=== PATIENT | male | born 1955 | race Asian ===

== ENCOUNTER → 2016-12-03 | Outpatient (CLI) | payer OTHER ==
[~2016-12-03] MED LIST: ACT15 PO; GENOVIA PO; GLIPIZIDE5 MG PO; HEP25PM IV; LIPI20 PO; METFORMIN HCL1000 MG PO; METOPROLOL TART25 M1 PO; MP PO; NIT0.4 SL; PROT40I IV; VASOTEC20 MG PO
--- NOTE | 2016-12-03 14:15 | NUR ---
LEXISCAN CARDIOLITE STRESS COMPLETED
== END | disposition home or self-care (01) ==
LOC: CA 09:00 → NM 13:30
DX: R06.02 Shortness of breath (principal)
CPT/HCPCS: A9500; J2785

== ENCOUNTER → 2017-03-11 | Outpatient (CLI) | payer OTHER ==
--- NOTE | 2017-03-11 13:31 | NUR ---
CARDIOLITE STRESS TEST COMPLETED
== END | disposition home or self-care (01) ==
LOC: CA 11:08
DX: R94.31 Abnormal electrocardiogram [ECG] [EKG] (principal); I10 Essential (primary) hypertension
CPT/HCPCS: A9500

== ENCOUNTER → 2017-05-27 | Outpatient (CLI) | payer OTHER ==
[2017-05-27 07:31] LABS: microscopic required? NO
[2017-05-27 07:57] LABS: ALKALINE PHOSPHATASE 102 U/L (46-116); ALT/SGPT 34 U/L (16-63); AST/SGOT 30 U/L (15-37); BILIRUBIN DIRECT 0.22 mg/dL (0.0-0.2); BILIRUBIN TOTAL 0.5 mg/dL (0.20-1.00); CALCIUM 9.5 mg/dL (8.5-10.1); CARBON DIOXIDE 30.4 mmol/L (21-32); CHLORIDE SERUM 103 mmol/L (98-107); CHOLESTEROL 124 mg/dL (<200); CHOLESTEROL/HDL RATIO 1.4; GFR1 > 60 mL/min; GLUCOSE SERUM 115 mg/dL (74-106); HDL CHOLESTEROL 87 mg/dL (40-60); POTASSIUM SERUM 5.1 mmol/L (3.5-5.1); SODIUM SERUM 140 mmol/L (136-145); TOTAL PROTEIN, SERUM 8.7 g/dL (6.4-8.2); TRIGLYCERIDES 59 mg/dL (<150)
[2017-05-27 08:23] LABS: urine erythrocyte NEGATIVE (NEGATIVE)
== END | disposition home or self-care (01) ==
LOC: LB 07:06
PROVIDERS: Internal Medicine
DX: E11.9 Type 2 diabetes mellitus without complications (principal)

== ENCOUNTER → 2017-09-12 | Outpatient (CLI) | payer OTHER | END | disposition home or self-care (01) | LOC: CA 11:27 | DX: I10 Essential (primary) hypertension (principal); E11.9 Type 2 diabetes mellitus without complications ==

== ENCOUNTER → 2017-11-12 | Outpatient (CLI) | payer OTHER | END | disposition home or self-care (01) | LOC: RD 11:17 | DX: M47.896 Other spondylosis, lumbar region (principal) ==

== ENCOUNTER → 2018-01-18 | Outpatient (CLI) | payer OTHER ==
[2018-01-18 07:52] LABS: BASOPHIL % 1.2 % (0-2); PLATELET COUNT 199 x10^3mcL (130-400)
[2018-01-18 07:57] LABS: RED CELL DISTRIBUTION WIDTH 16.7 % (11.5-14.5)
[2018-01-18 08:30] LABS: T3 TOTAL 0.88 ng/mL
[2018-01-18 08:32] LABS: ALKALINE PHOSPHATASE 106 U/L (46-116); ALT/SGPT 38 U/L (16-63); AST/SGOT 29 U/L (15-37); BILIRUBIN TOTAL 0.46 mg/dL (0.20-1.00); CALCIUM 9.8 mg/dL (8.5-10.1); CARBON DIOXIDE 28.8 mmol/L (21-32); CHLORIDE SERUM 103 mmol/L (98-107); GFR1 > 60 mL/min; GLUCOSE SERUM 146 mg/dL (74-106); POTASSIUM SERUM 4.8 mmol/L (3.5-5.1); SODIUM SERUM 141 mmol/L (136-145); TRIGLYCERIDES 68 mg/dL (<150)
[2018-01-18 08:33] LABS: CHOLESTEROL 121 mg/dL (<200); CHOLESTEROL/HDL RATIO 1.4; HDL CHOLESTEROL 88 mg/dL (40-60); TOTAL PROTEIN, SERUM 8.3 g/dL (6.4-8.2)
[2018-01-18 09:06] LABS: FREE THYROXINE INDEX 2.6 ug/dL (1.4-4.5); T4(THYROXINE) 7.3 ug/dL (4.7-13.3)
[2018-01-18 09:31] LABS: FREE T4 1.04 ng/dL (0.76-1.46)
== END | disposition home or self-care (01) ==
LOC: LB 07:26
DX: R94.31 Abnormal electrocardiogram [ECG] [EKG] (principal); E78.2 Mixed hyperlipidemia; I25.10 Atherosclerotic heart disease of native coronary artery without angina pectoris; E66.3 Overweight
CPT/HCPCS: 84439

== ENCOUNTER 2018-03-24 17:51 | Inpatient (IN) | payer OTHER ==
[~2018-03-24] VITALS: Ht 165.1 cm; Wt 87.1 kg
[2018-03-24 17:55] VITALS: Ht 165.1 cm; Wt 87.1 kg
[2018-03-24 18:17] LABS: BASOPHIL % 0.8 % (0-2); PLATELET COUNT 235 x10^3mcL (130-400)
[2018-03-24 18:20] LABS: RED CELL DISTRIBUTION WIDTH 18.2 % (11.5-14.5)
[2018-03-24 18:29] LABS: CALCIUM 9.3 mg/dL (8.5-10.1); CARBON DIOXIDE 30.9 mmol/L (21-32); CHLORIDE SERUM 100 mmol/L (98-107); CREATININE SERUM 1.2 mg/dL (0.7-1.3); GFR1 > 60 mL/min; GLUCOSE SERUM 124 mg/dL (74-106); POTASSIUM SERUM 3.9 mmol/L (3.5-5.1); SODIUM SERUM 139 mmol/L (136-145)
[2018-03-24 18:34] LABS: ALBUMIN 4.3 g/dL (3.4-5.0); ALKALINE PHOSPHATASE 119 U/L (46-116); ALT/SGPT 21 U/L (16-63); AST/SGOT 23 U/L (15-37); BILIRUBIN TOTAL 0.5 mg/dL (0.20-1.00); LIPASE 111 IU/L (73-393)
[2018-03-24 18:35] LABS: TOTAL PROTEIN, SERUM 8.9 g/dL (6.4-8.2)
[2018-03-24] MEDS ORDERED: ACT30 PO (19:14)
[2018-03-24] MEDS ORDERED: ASPIRIN ADULT L81 M5 PO (19:14)
[2018-03-24] MEDS ORDERED: JANUVIA100 M1 PO (19:15)
[2018-03-24] MEDS ORDERED: PLA75 PO (19:15)
[2018-03-24] MEDS ORDERED: VASOTEC20 MG PO (19:16)
[2018-03-24] MEDS ORDERED: GLUCOPHAGE1000 MG PO (19:17)
[2018-03-24] MEDS ORDERED: GLUCOTROL5 MG PO (19:17)
[2018-03-24] MEDS ORDERED: METOPROLOL SUCC50 M2 PO (19:19)
[2018-03-24] MEDS ORDERED: CENTRUM ADULTS1 EACH PO (19:20)
[2018-03-24] MEDS ORDERED: LIPI20 PO (19:20)
[2018-03-24] MEDS ORDERED: NORCO1 TA2 GT (19:20)
[2018-03-24] MEDS ORDERED: NORCO1 TA2 PO (19:21)
[2018-03-24 19:52] VITALS: BP 135/69
[2018-03-24 20:06] LABS: MAGNESIUM 1.9 mg/dL (1.8-2.4)
[2018-03-24 20:26] LABS: CHOLESTEROL/HDL RATIO 1.5
[2018-03-24 22:59] VITALS: BP 125/62
[2018-03-24 23:32] LABS: microscopic required? NO
[2018-03-24 23:42] LABS: UA SPECIFIC GRAVITY 1.015 (1.005-1.035); urine erythrocyte NEGATIVE (NEGATIVE)
[2018-03-24 23:57] LABS: AMPHETAMINE QUAL UR NONE DETECTED (See below)
[2018-03-25 06:22] VITALS: BP 118/71
[2018-03-25 06:58] LABS: BASOPHIL % 0.4 % (0-2); PLATELET COUNT 195 x10^3mcL (130-400)
[2018-03-25 07:05] LABS: RED CELL DISTRIBUTION WIDTH 17.8 % (11.5-14.5)
[2018-03-25 07:10] LABS: CALCIUM 8.6 mg/dL (8.5-10.1); CARBON DIOXIDE 30.3 mmol/L (21-32); CHLORIDE SERUM 101 mmol/L (98-107); CREATININE SERUM 1.1 mg/dL (0.7-1.3); GFR1 > 60 mL/min; GLUCOSE SERUM 231 mg/dL (74-106); POTASSIUM SERUM 4.6 mmol/L (3.5-5.1); SODIUM SERUM 137 mmol/L (136-145)
[2018-03-25 09:31] VITALS: BP 128/68
[2018-03-25 13:28] VITALS: BP 101/56
[2018-03-25 17:51] VITALS: BP 104/55
[2018-03-25 18:05] VITALS: BP 104/55
== END 2018-03-25 19:00 | disposition home or self-care (01) | DRG 303 ==
LOC: ED 17:51 → DU 18:56
PROVIDERS: Emergency Medicine; Internal Medicine
DX: I25.119 Atherosclerotic heart disease of native coronary artery with unspecified angina pectoris (principal); R09.1 Pleurisy; E11.65 Type 2 diabetes mellitus with hyperglycemia; I10 Essential (primary) hypertension; K21.9 Gastro-esophageal reflux disease without esophagitis; E11.40 Type 2 diabetes mellitus with diabetic neuropathy, unspecified; E78.5 Hyperlipidemia, unspecified; Z79.82 Long term (current) use of aspirin; Z68.29 Body mass index [BMI] 29.0-29.9, adult; Z95.1 Presence of aortocoronary bypass graft; Z95.5 Presence of coronary angioplasty implant and graft; I25.2 Old myocardial infarction; Z79.84 Long term (current) use of oral hypoglycemic drugs; Z82.49 Family history of ischemic heart disease and other diseases of the circulatory system
CPT/HCPCS: 78226; 83880; A9537; C9113; J2270; J3010; J3490; J7030; J8597; Q0092

== ENCOUNTER → 2018-08-12 | Outpatient (CLI) | payer OTHER ==
[~2018-08-12] MED LIST changes: +ACT30 PO; +ASPIRIN ADULT L81 M5 PO; +CENTRUM ADULTS1 EACH PO; +GLUCOPHAGE1000 MG PO; +GLUCOTROL5 MG PO; +JANUVIA100 M1 PO; +METOPROLOL SUCC50 M2 PO; +NORCO1 TA2 GT; +NORCO1 TA2 PO; +PLA75 PO
[2018-08-12 08:20] LABS: BASOPHIL % 0.8 % (0-2); PLATELET COUNT 195 x10^3mcL (130-400)
[2018-08-12 08:23] LABS: RED CELL DISTRIBUTION WIDTH 16.8 % (11.5-14.5)
[2018-08-12 08:26] LABS: ALBUMIN 3.9 g/dL (3.4-5.0); ALKALINE PHOSPHATASE 116 U/L (46-116); ALT/SGPT 35 U/L (16-63); AST/SGOT 24 U/L (15-37); BILIRUBIN DIRECT 0.17 mg/dL (0.0-0.2); BILIRUBIN TOTAL 0.38 mg/dL (0.20-1.00); CALCIUM 9.2 mg/dL (8.5-10.1); CARBON DIOXIDE 33.3 mmol/L (21-32); CHLORIDE SERUM 103 mmol/L (98-107); CREATININE SERUM 1.1 mg/dL (0.7-1.3); GFR1 > 60 mL/min; GLUCOSE SERUM 156 mg/dL (74-106); POTASSIUM SERUM 4.8 mmol/L (3.5-5.1); SODIUM SERUM 140 mmol/L (136-145); TOTAL PROTEIN, SERUM 8.2 g/dL (6.4-8.2); TRIGLYCERIDES 57 mg/dL (<150)
[2018-08-12 09:01] LABS: CHOLESTEROL 117 mg/dL (<200); CHOLESTEROL/HDL RATIO 1.4; HDL CHOLESTEROL 81 mg/dL (40-60)
[2018-08-13 07:17] LABS: microalbumin:creatinine ratio 66.1 (0.0-30.0)
== END | disposition home or self-care (01) ==
LOC: LB 07:42
PROVIDERS: Internal Medicine
DX: Z00.00 Encounter for general adult medical examination without abnormal findings (principal); I25.10 Atherosclerotic heart disease of native coronary artery without angina pectoris

== ENCOUNTER 2018-09-29 09:32 | Inpatient (IN) | payer OTHER ==
[~2018-09-29] VITALS: Ht 165.1 cm; Wt 91.9 kg
[2018-09-29 09:53] VITALS: Ht 165.1 cm; Wt 91.9 kg
[2018-09-29 10:29] LABS: BASOPHIL % 0.8 % (0-2); PLATELET COUNT 196 x10^3mcL (130-400)
[2018-09-29 10:33] LABS: CALCIUM 9.7 mg/dL (8.5-10.1); CARBON DIOXIDE 28.2 mmol/L (21-32); CREATININE SERUM 1.3 mg/dL (0.7-1.3); POTASSIUM SERUM 4.9 mmol/L (3.5-5.1)
[2018-09-29 10:34] LABS: RED CELL DISTRIBUTION WIDTH 16.1 % (11.5-14.5)
[2018-09-29 10:37] LABS: ALBUMIN 3.9 g/dL (3.4-5.0); BILIRUBIN TOTAL 0.4 mg/dL (0.20-1.00); TOTAL PROTEIN, SERUM 8.4 g/dL (6.4-8.2)
[2018-09-29 10:53] LABS: AMYLASE 65 U/L (25-115); LIPASE 200 IU/L (73-393)
[2018-09-29 10:54] LABS: CHOLESTEROL 107 mg/dL (<200); HDL CHOLESTEROL 73 mg/dL (40-60)
[2018-09-29 12:14] LABS: microscopic required? NO
[2018-09-29 12:20] LABS: urine erythrocyte NEGATIVE (NEGATIVE)
[2018-09-29 13:03] LABS: AMPHETAMINE QUAL UR NONE DETECTED (See below)
[2018-09-29 13:54] LABS: MAGNESIUM 1.5 mg/dL (1.8-2.4)
[2018-09-29 13:57] LABS: CHOLESTEROL/HDL RATIO 1.5
[2018-09-29 16:45] VITALS: BP 142/76
[2018-09-29 18:24] VITALS: BP 130/76
== END 2018-09-29 19:50 | disposition short-term general hospital (02) | DRG 282 ==
LOC: ED 09:32 → DU 12:44 → ED 12:44 → IC 12:44
PROVIDERS: Emergency Medicine; ADMIT Internal Medicine
DX: I21.9 Acute myocardial infarction, unspecified (principal); K21.9 Gastro-esophageal reflux disease without esophagitis; I10 Essential (primary) hypertension; E78.00 Pure hypercholesterolemia, unspecified; E78.5 Hyperlipidemia, unspecified; E11.9 Type 2 diabetes mellitus without complications; I25.10 Atherosclerotic heart disease of native coronary artery without angina pectoris; I25.2 Old myocardial infarction; Z95.5 Presence of coronary angioplasty implant and graft; Z95.1 Presence of aortocoronary bypass graft; Z79.84 Long term (current) use of oral hypoglycemic drugs; Z79.899 Other long term (current) drug therapy
CPT/HCPCS: 82962; 83880; J2270; Q0092

== ENCOUNTER → 2018-11-10 | Outpatient (CLI) | payer OTHER ==
[2018-11-10 17:14] LABS: BASOPHIL % 0.4 % (0-2); PLATELET COUNT 253 x10^3mcL (130-400)
== END | disposition home or self-care (01) ==
LOC: LB 16:36
PROVIDERS: Internal Medicine
DX: A41.9 Sepsis, unspecified organism (principal)

== ENCOUNTER → 2019-01-11 | Outpatient (CLI) | payer OTHER ==
[2019-01-11 07:41] LABS: microscopic required? NO
[2019-01-11 08:21] LABS: ALBUMIN 3.8 g/dL (3.4-5.0); ALKALINE PHOSPHATASE 103 U/L (46-116); ALT/SGPT 27 U/L (16-63); AST/SGOT 21 U/L (15-37); BILIRUBIN TOTAL 0.6 mg/dL (0.20-1.00); CALCIUM 9.4 mg/dL (8.5-10.1); CARBON DIOXIDE 25.9 mmol/L (21-32); CHLORIDE SERUM 102 mmol/L (98-107); GFR1 > 60 mL/min; GLUCOSE SERUM 157 mg/dL (74-106); POTASSIUM SERUM 4.6 mmol/L (3.5-5.1); SODIUM SERUM 138 mmol/L (136-145)
[2019-01-11 08:40] LABS: TOTAL PROTEIN, SERUM 8.6 g/dL (6.4-8.2)
[2019-01-11 10:05] LABS: urine erythrocyte NEGATIVE (NEGATIVE)
== END | disposition home or self-care (01) ==
LOC: LB 07:18
PROVIDERS: Internal Medicine
DX: E11.9 Type 2 diabetes mellitus without complications (principal)

== ENCOUNTER 2019-01-22 09:50 | Emergency (ER) | payer OTHER ==
[~2019-01-22] VITALS: Ht 165.1 cm; Wt 83.9 kg
[2019-01-22 10:07] VITALS: Ht 165.1 cm; Wt 83.9 kg
[2019-01-22 12:30] VITALS: BP 133/89
== END 2019-01-22 12:30 | disposition home or self-care (01) ==
LOC: ED 09:50
DX: S80.02XA Contusion of left knee, initial encounter (principal); E11.9 Type 2 diabetes mellitus without complications; I10 Essential (primary) hypertension; E78.00 Pure hypercholesterolemia, unspecified; K21.9 Gastro-esophageal reflux disease without esophagitis; Z95.1 Presence of aortocoronary bypass graft; Z98.61 Coronary angioplasty status; W01.0XXA Fall on same level from slipping, tripping and stumbling without subsequent striking against object, initial encounter; Y93.01 Activity, walking, marching and hiking; Y92.89 Other specified places as the place of occurrence of the external cause; Y99.8 Other external cause status
CPT/HCPCS: 90715; Q0092

== ENCOUNTER → 2019-07-29 | Outpatient (CLI) | payer OTHER ==
[2019-07-29 07:57] LABS: BASOPHIL % 0.5 % (0-2); PLATELET COUNT 263 x10^3mcL (130-400)
[2019-07-29 07:58] LABS: RED CELL DISTRIBUTION WIDTH 17.5 % (11.5-14.5)
[2019-07-29 08:28] LABS: ALBUMIN 3.9 g/dL (3.4-5.0); ALKALINE PHOSPHATASE 99 U/L (46-116); ALT/SGPT 25 U/L (16-63); AST/SGOT 19 U/L (15-37); BILIRUBIN TOTAL 0.5 mg/dL (0.20-1.00); CALCIUM 9.7 mg/dL (8.5-10.1); CARBON DIOXIDE 28.7 mmol/L (21-32); CHLORIDE SERUM 103 mmol/L (98-107); CHOLESTEROL 99 mg/dL (<200); CHOLESTEROL/HDL RATIO 1.7; CREATININE SERUM 1.1 mg/dL (0.7-1.3); GFR1 > 60 mL/min; GLUCOSE SERUM 165 mg/dL (74-106); HDL CHOLESTEROL 60 mg/dL (40-60); POTASSIUM SERUM 5.4 mmol/L (3.5-5.1); SODIUM SERUM 142 mmol/L (136-145); TOTAL PROTEIN, SERUM 8.9 g/dL (6.4-8.2); TRIGLYCERIDES 56 mg/dL (<150)
== END | disposition home or self-care (01) ==
LOC: LB 07:06
PROVIDERS: Internal Medicine
DX: Z00.00 Encounter for general adult medical examination without abnormal findings (principal)

== ENCOUNTER → 2020-02-09 | Outpatient (CLI) | payer OTHER ==
[2020-02-09 07:41] LABS: BASOPHIL % 0.8 % (0-2); PLATELET COUNT 238 x10^3mcL (130-400)
[2020-02-09 07:49] LABS: RED CELL DISTRIBUTION WIDTH 17.6 % (11.5-14.5)
[2020-02-09 08:27] LABS: ALBUMIN 4.1 g/dL (3.4-5.0); ALKALINE PHOSPHATASE 103 U/L (46-116); ALT/SGPT 25 U/L (16-63); AST/SGOT 17 U/L (15-37); BILIRUBIN TOTAL 0.5 mg/dL (0.20-1.00); CALCIUM 9.8 mg/dL (8.5-10.1); CARBON DIOXIDE 28.2 mmol/L (21-32); CHLORIDE SERUM 101 mmol/L (98-107); CREATININE SERUM 1.1 mg/dL (0.7-1.3); GFR1 > 60 mL/min; GLUCOSE SERUM 179 mg/dL (74-106); POTASSIUM SERUM 5.3 mmol/L (3.5-5.1); SODIUM SERUM 139 mmol/L (136-145); TRIGLYCERIDES 67 mg/dL (<150)
[2020-02-09 08:31] LABS: CHOLESTEROL 109 mg/dL (<200); CHOLESTEROL/HDL RATIO 1.6; HDL CHOLESTEROL 67 mg/dL (40-60); TOTAL PROTEIN, SERUM 8.6 g/dL (6.4-8.2)
[2020-02-09 13:32] LABS: BILIRUBIN DIRECT 0.19 mg/dL (0.0-0.2)
== END | disposition home or self-care (01) ==
LOC: LB 07:06
PROVIDERS: ATTEND Internal Medicine
DX: Z00.00 Encounter for general adult medical examination without abnormal findings (principal)

== ENCOUNTER → 2020-04-19 | Outpatient (CLI) | payer OTHER | END | disposition home or self-care (01) | LOC: CT 13:15 | PROVIDERS: ATTEND Internal Medicine | PROC: BW28ZZZ Computerized Tomography (CT Scan) of Head (ICD-10-PCS; principal; 2020-04-19) | DX: I63.9 Cerebral infarction, unspecified (principal) ==